=== PATIENT | female | born 1980 | race African-American/Black ===

== ENCOUNTER 2025-08-24 06:33 | Emergency (ER) | payer SELFPAY ==
[~2025-08-24] VITALS: Ht 170.2 cm; Wt 92.0 kg
[2025-08-24 06:35] VITALS: O2SAT 99
[2025-08-24] MEDS: ONDANSETRON HCL 4MG/2ML INJ IV ONE (07:13)
[2025-08-24] MEDS: PANTOPRAZOLE SODIUM 40 MG/VIAL IV ONE (07:14)
[2025-08-24] MEDS: SODIUM CHLORIDE 0.9% 1,000 ML IV ONE (07:14)
[2025-08-24] MEDS: MORPHINE SULFATE 4 MG/ML INJ (FOR IV/IM USE) IV ONE ×2 (07:14→08:11)
[2025-08-24 07:17] LABS: BASOPHILS % 0.7 % (0.0-2.0); EOSINOPHILS % 1.7 % (0.0-5.0); HEMATOCRIT. 38.5 % (36.0-48.0); HEMOGLOBIN. 13.0 g/dL (12.0-16.0); LYMPHOCYTES % 24.0 % (20.0-50.0); MEAN PLATELET VOLUME 9.1 fl (7.4-10.4); MONOCYTES % 8.0 % (2.0-8.0); NEUTROPHILS % 65.6 % (40.0-76.0); PLATELET 174 x1000/uL (130-400); RED BLOOD CELL COUNT 4.13 mill/uL (4.2-5.4); RED CELL DISTRIBUTION WIDTH 13.4 % (11.6-14.6)
[2025-08-24 07:27] LABS: CREATININE 1.0 mg/dL (0.6-1.0)
[2025-08-24 07:28] LABS: PROTEIN TOTAL 6.9 g/dL (6.0-8.3); UREA NITROGEN BLOOD 15 mg/dL (9-23)
[2025-08-24 07:29] LABS: ASPARTATE AMINOTRANSFERASE 85 IU/L (<34)
[2025-08-24 07:30] LABS: BILIRUBIN DIRECT 0.2 mg/dL (<=3.0); BILIRUBIN TOTAL 0.7 mg/dL (0.1-1.0)
[2025-08-24 07:37] LABS: HCG SCREEN NEGATIVE
[2025-08-24 10:16] LABS: CLARITY URINE CLOUDY (CLEAR); COLOR URINE YELLOW (YELLOW); GLUCOSE URINE NEGATIVE (NEGATIVE); KETONES URINE NEGATIVE (NEGATIVE); LEUKOCYTE ESTERASE URINE NEGATIVE (NEGATIVE); NITRITE URINE NEGATIVE (NEGATIVE); OCCULT BLOOD URINE NEGATIVE (NEGATIVE); PH URINE 8.5 (4.5-8.0); PROTEIN URINE NEGATIVE (NEGATIVE); SPECIFIC GRAVITY URINE 1.018 (1.005-1.030); UROBILINOGEN URINE 1.0 E.U./dL (0.2-1.0)
[2025-08-24 10:33] LABS: SQUAMOUS EPITHELIAL CELL URINE 2+ /lpf (RARE/1+)
[2025-08-24 10:34] LABS: RBC URINE 0-2 /hpf (0-2); WBC URINE 0-2 /hpf (0-2)
[2025-08-24 10:35] LABS: BACTERIA URINE TRACE
[2025-08-24] MEDS ORDERED: ONDA-239 PO (10:48)
[2025-08-24 11:00] VITALS: BP 99/59; PULSE 61; RESP 20; TEMP 36.7; O2SAT 98
== END 2025-08-24 11:11 | disposition home or self-care (01) ==
LOC: ER 06:33
DX: K52.9 Noninfective gastroenteritis and colitis, unspecified (principal); Z90.710 Acquired absence of both cervix and uterus
CPT/HCPCS: 80076; 80048; 81003; 84703; 83690; 85025; 36415; 74176; 96365; 96372; 96375; 96376; 99285; J2405; J2470; J2270; J7030; Z7610 ×2